=== PATIENT | female | born 1980 | race Caucasian/White ===

== ENCOUNTER → 2019-07-27 11:28 | Outpatient (CLI) | payer SELFPAY ==
--- NOTE | ~2019-07-27 | XR_ITS ---
EXAMINATION: XR lumbar spine 2-3V DATE: 07/27/2019 12:12 INDICATION: Low back pain TECHNIQUE: Anteroposterior and lateral views of the lumbar spine, and cone-down lateral view of the l umbosacral junction were obtained. COMPARISON: None. FINDINGS: There is no fracture, dislocation, or subluxation. The vertebral body heights are normal. T here is moderate loss of intervertebral disc space height at L5-S1. Small degenerative osteophytes pr oject from the anterior endplates of multiple vertebral bodies. IMPRESSION: 1. Moderate lumbar spondylosis at L5-S1 without acute osseous abnormality. Reviewed, dictated and finalized at location A.
== END ==
PROVIDERS: PCP Emergency Medicine; Visit Provider Emergency Medicine
DX: M47.897 Other spondylosis, lumbosacral region (principal)
CPT/HCPCS: 72100

== ENCOUNTER 2019-11-14 08:41 | Emergency (ER) | payer OTHER, SELFPAY ==
[2019-11-14] VITALS (14 sets, daily range): BP systolic 115–153; BP diastolic 83–121; PULSE 54–89; RESP 16–18; TEMP 36.9; O2SAT 77–100
--- NOTE | ~2019-11-14 | XR_ITS ---
EXAMINATION: XR chest 2V EXAM DATE: 11/14/2019 13:40 INDICATION: Cough and vomiting, symptoms 2 days. TECHNIQUE: Frontal and lateral projections of the chest obtained and reviewed. Comparison is made to prior examination from 07/31/2018. FINDINGS: The lungs are clear. There are no pleural effusions. The cardiomediastinal silhouette is within normal limits. There is no pneumothorax suspected. The bones and soft tissues are unremarkab le. There is no significant interval change. IMPRESSION: No acute cardiopulmonary findings. Reviewed, dictated and finalized at location B.
--- NOTE | 2019-11-14 08:47 | ED.NAVMDI ---
HPI - Nausea/Vomiting/Diarrhea General Chief complaint: Nausea/Vomiting/Diarrhea Stated complaint: vomiting Time Seen by Provider: 11/14/19 08:47 Source: patient Mode of arrival: ambulatory Limitations: no limitations History of Present Illness HPI Narrative: Patient is a 39-year-old female that presents for evaluation of intractable nausea and vomiting. Patient states symptoms started after having an episode of binge drinking on Thursday night which she and 2 other friends finished nearly a handle of hard alcohol. Patient states she has a history frequent alcohol use, but denies any dependency or history of alcohol withdrawal. She states in the past she has had pancreatitis, but is currently denying any abdominal pain. Pain is mild, aching throughout her abdomen. She states it is very mild in nature. She reports a burning irritation in her throat. She denies any chest pain or shortness of breath. She states that she has been unable to tolerate any oral intake over the past 48 hours. She denies fever, chills, hematuria or dysuria. No lower abdominal pain or vaginal discharge. No diarrhea. Related Data Allergies Allergy/AdvReac Type Severity Reaction Status Date / Time cefadroxil Allergy Severe Verified 12/15/12 13:39 morphine Allergy Intermediate Verified 12/15/12 13:38 Penicillins Allergy Intermediate Verified 10/14/13 14:57 Cephalosporins Allergy Mild NOT SURE Verified 04/09/15 14:36 acetaminophen Allergy Unknown Verified 07/19/16 13:25 propoxyphene Allergy Unknown Verified 07/19/16 13:25 Review of Systems Review of Systems: Narrative: CONSTITUTIONAL: Denies fever, chills, or sweats. ENT: Denies rhinorrhea, congestion CARDIOVASCULAR: Denies chest pain, palpitations RESPIRATORY: Denies cough or dyspnea. GASTROINTESTINAL: Reports mild abdominal pain, reports nausea and vomiting GENITOURINARY: Denies dysuria or hematuria. SKIN: Denies rash or itching. MUSCULOSKELETAL: Denies back pain, joint pain, or myalgia. NEUROLOGIC: Denies headache, numbness, or weakness. [facility] Past Medical History Medical History Pancreatitis Family History Family History (Updated 09/07/15 @ 23:19 by DOCTOR UNKNOWN) Father Family history of diabetes mellitus in first degree relative Other Diabetes mellitus Social History Social History (Updated 11/14/19 @ 08:56 by Kandi Van MD) Smoking status: Current every day smoker Smoking end date: 02/09/06 Alcohol intake: current Substance use: current Substance use type: marijuana Gender identity (if verbalized by the patient): Female Exam Narrative: Exam Narrative: GENERAL: Awake, alert, conversant, tearful HEAD: Normocephalic, atraumatic. EYES: PERRLA and EOMI. ENT: Nares clear, no rhinorrhea or epistaxis. Mucous membranes moist. NECK: Supple. CHEST: No respiratory distress, breathing even and non labored HEART: Regular rate, sinus rhythm ABDOMEN:Non distended, non tender, no focal tenderness on exam, non rigid, non distended EXTREMITIES: Normal range of motion. No edema. SKIN: Warm, dry, no rash. NEURO:No focal deficits. Alert and oriented x3 Course Vital Signs Vital signs: Vital Signs Temperature 36.9 C 11/14/19 08:46 Pulse Rate 54 L 11/14/19 08:46 Respiratory Rate 17 11/14/19 08:46 Blood Pressure 115/90 11/14/19 08:46 Pulse Oximetry 97 11/14/19 08:46 Temperature 36.9 C 11/14/19 08:46 Pulse Rate 74 11/14/19 15:01 Respiratory Rate 16 11/14/19 15:01 Blood Pressure 153/85 H 11/14/19 15:01 Pulse Oximetry 100 11/14/19 15:01 MDM - Nausea/Vomiting/Diarrhea MDM Narrative Medical decision making narrative: Patient presented for evaluation of recurrent nausea and vomiting after heavy alcohol use over 48 hours ago. Patient is denying any abdominal pain and in fact does not have any focal findings on abdominal exam. Vital signs are reassuring. Have access obtained and
[2019-11-14 08:59] LABS: Basophils Percent Auto 0.2 % (0.2-1.2); Eosinophils Percent Auto 0.2 % (0-4.4); Hemoglobin 16.7 g/dL (12.0-15.0); Immature Granulocyte Absolute 0.08 K/mm3 (0.00-0.031); Immature Granulocyte Percent A 0.6 % (0-0.5); Lymphocytes Percent Auto 8.8 % (18.3-44.2); Mean Corpuscular HGB Conc 35.5 g/dl (32-36); Mean Corpuscular Hemoglobin 31.7 pg (26-34); Mean Corpuscular Volume 89.4 fl (80-100); Mean Platelet Volume 9.3 fl (7.4-10.4); Monocytes Absolute Auto 0.9 K/mm3 (0.1-0.6); Monocytes Percent Auto 7.2 % (2.6-8.5); Neutrophils Absolute Auto 10.4 K/mm3 (1.3-6.7); Platelet Count Result 266 k/mm3 (150-375); Red Blood Count 5.26 M/mm3 (4.2-5.4); Red Cell Distribution Width 13.6 % (11.5-14.5); White Blood Count 12.5 K/mm3 (4.5-10.0)
[2019-11-14 09:17] LABS: Alanine Aminotransferase 32 U/L (4-35); Albumin Level 4.9 g/dL (3.5-5.1); Alkaline Phosphatase 93 U/L (38-126); Anion Gap 18 mmol/L (8-16); Aspartate Amino Transferase 34 U/L (14-36); Bilirubin,Total 1.1 mg/dL (0.2-1.3); Blood Urea Nitrogen 15 mg/dL (7-17); Calcium 9.9 mg/dL (8.4-10.2); Carbon Dioxide 27 mmol/L (22-30); Chloride 91 mmol/L (98-107); Estimated Glomerular Filt Rate > 60; Glucose 131 mg/dL (65-105); Lipase 53 U/L (23-300); Potassium 2.8 mmol/L (3.4-5.0); Sodium 136 mmol/L (137-145)
[2019-11-14] MEDS: SODIUM CHLORIDE 0.9% IV 1,000 ML 999 ML IV CONT (09:25)
[2019-11-14] MEDS: ONDANSETRON INJ 4 MG/2 ML VIAL IV PUSH ×2 (09:26→14:20)
[2019-11-14] MEDS: KCL 20 MEQ/SW 100 ML 100 ML 50 MEQ IVPB (09:43)
--- NOTE | 2019-11-14 09:45 | PC.NURSE ---
PER ERP KRUPA, THIAMINE BAG OF IV FLUIDS CAN BE HUNG AT A BOLUS RATE. BAG HUNG AT THAT RATE AT THIS TIME.
--- NOTE | 2019-11-14 09:46 | PC.NURSE ---
PER DONYA IN PHARMACY, K+ OKAY TO RUN WITH THIAMINE DRIP, BAGS INFUSING TOGETHER AT THIS TIME.
--- NOTE | 2019-11-14 09:48 | PC.NURSE ---
PT REPORTS THAT HER NAUSEA HAS RESOLVED AT THIS TIME.
[2019-11-14] MEDS: MAG HYDROX/AL HYDROX/SIMETH 30 ML UDC PO (10:20)
[2019-11-14] MEDS: POTASSIUM CHLORIDE 20 MEQ PACKET (FOR LIQUID) 40 MEQ PO (11:12)
--- NOTE | 2019-11-14 11:12 | PC.NURSE ---
PT COMPLAINING THAT THE IV POTASSIUM IS BURNING HER ARM. ERP BERTELS VERBAL ORDER FRO 500ML NS TO RUN WITH POTASSIUM AT THIS TIME
[2019-11-14] MEDS: SODIUM CHLORIDE 0.9% IV 500 ML (11:13)
--- NOTE | 2019-11-14 12:39 | PC.NURSE ---
UPON ROUNDING ON PT SHE IS C/O BURNING STILLL IN ESOPHAGUS. VERBAL ORDER FOR LIDOCAINE FROM [facility].
[2019-11-14] MEDS: LIDOCAINE HCL 2% VISC SOLN 15 ML UDC PO (12:46)
[2019-11-14 13:15] LABS: Anion Gap 7 mmol/L (8-16); Blood Urea Nitrogen 12 mg/dL (7-17); Calcium 8.4 mg/dL (8.4-10.2); Carbon Dioxide 31 mmol/L (22-30); Chloride 98 mmol/L (98-107); Estimated CRCL calculation 126 ml/min; Estimated Glomerular Filt Rate > 60; Glucose 100 mg/dL (65-105); Potassium 3.1 mmol/L (3.4-5.0); Sodium 136 mmol/L (137-145)
== END 2019-11-14 15:02 | disposition home or self-care (01) ==
PROVIDERS: Emergency Provider Emergency Medicine; PCP Emergency Medicine
DX: R11.2 Nausea with vomiting, unspecified (principal); E87.6 Hypokalemia; E86.0 Dehydration; Z87.891 Personal history of nicotine dependence
CPT/HCPCS: 36415; 71046; 80048; 80053; 81025; 83690; 85025; 96365; 96366; 96368; 96375; 96376; 99284; A9270; J2405; J3411; J3475; J3480; J7030; J7040; J7121

== ENCOUNTER 2019-12-27 13:50 | Outpatient (CLI) | payer OTHER, SELFPAY | END 2019-12-27 13:51 | disposition home or self-care (01) | LOC: ANHAUDIO 13:52 | PROVIDERS: PCP Emergency Medicine; Visit Provider Otolaryngology | DX: H93.13 Tinnitus, bilateral (principal) | CPT/HCPCS: 92557; 92567 ==

== ENCOUNTER 2020-01-16 15:08 | Outpatient (CLI) | payer OTHER, SELFPAY ==
--- NOTE | ~2020-01-16 | MM_ITS ---
EXAMINATION: MM screening eliu BI w david HISTORY: Screening TECHNIQUE: Craniocaudal and mediolateral oblique 3-D tomosynthesis images were obtained and synthetic 2-D images were generated. CAD analysis was submitted and interpreted. COMPARISON: No prior mammogram is available for comparison at this institution. BREAST PARENCHYMAL COMPOSITION: The breasts are heterogeneously dense, which may obscure small masses . FINDINGS: There is no evidence of suspicious mass, calcification, or architectural distortion to sugg est malignancy in either breast. There has been no suspicious interval change. IMPRESSION: 1. No mammographic evidence of malignancy. 2. Recommend routine screening mammography in one year. BI-RADS Category 1: Negative Reviewed, dictated and finalized at location A. CLEANER PRESSER
== END 2020-01-16 15:09 | disposition home or self-care (01) ==
LOC: ANHIMG 15:09
PROVIDERS: PCP Emergency Medicine; Visit Provider Emergency Medicine
DX: Z12.31 Encounter for screening mammogram for malignant neoplasm of breast (principal)
CPT/HCPCS: 77063; 77067

== ENCOUNTER → 2021-02-25 10:37 | Outpatient (CLI) | payer OTHER, SELFPAY ==
[2021-02-26 10:57] LABS: SARS-CoV-2 RNA PCR Positive
== END ==
PROVIDERS: PCP Emergency Medicine; Visit Provider Emergency Medicine
DX: U07.1 COVID-19 (principal)
CPT/HCPCS: C9803; U0003; U0005

== ENCOUNTER 2022-04-01 16:33 | Emergency (ER) | payer OTHER, SELFPAY ==
--- NOTE | ~2022-04-01 | XR_ITS ---
EXAMINATION: XR chest 2V DATE: 04/01/2022 17:01 INDICATION: Intermittent palpitations TECHNIQUE: PA and lateral views of the chest were obtained. COMPARISON: Chest radiograph dated 11/14/2019 FINDINGS: The lungs remain clear with no focal airspace opacities, pulmonary edema, pleural effusion or pneumot horax. The cardiomediastinal silhouette is normal. Mild to moderate thoracic spondylosis. IMPRESSION: 1. No acute cardiopulmonary disease. Reviewed, dictated and finalized at location A. BUILDER OPERATOR
--- NOTE | 2022-04-01 16:34 | ECG_ITS ---
Measurements Intervals [place] Rate: 95 P: 47 MT: 154 QRS: -43 QRSD: 99 T: 54 QT: 361 QTc: 454 Interpretive Statements SINUS RHYTHM WITH FREQUENT ECTOPIC PREMATURE COMPLEXES LEFT ANTERIOR FASCICULAR BLOCK MODERATE VOLTAGE CRITERIA FOR LVH, CONSIDER NORMAL VARIANT [MEETS CRITERIA IN ONE OF: R(aVL), S(V1), R(V5), R(V5/V6)+S(V1)] ABNORMAL ECG NO PREVIOUS ECG AVAILABLE FOR COMPARISON Electronically Signed On 04-02-2022 13:37:36 CYCLE COUNTER by Reynaldo Lara M.D.
[2022-04-01 16:40] VITALS: BP 154/103; PULSE 91; RESP 16; TEMP 36.8; O2SAT 100
[2022-04-01 16:53] LABS: Basophils Absolute Auto 0.1 K/mm3 (0.0-0.1); Eosinophils Absolute Auto 0.2 K/mm3 (0-0.3); Eosinophils Percent Auto 1.7 % (0-4.4); Hematocrit 37.5 % (37.0-47.0); Hemoglobin 11.9 g/dL (12.0-15.0); Immature Granulocyte Absolute 0.04 K/mm3 (0.00-0.031); Immature Granulocyte Percent A 0.4 % (0-0.5); Lymphocytes Percent Auto 20.1 % (18.3-44.2); Mean Corpuscular HGB Conc 31.7 g/dl (32-36); Mean Corpuscular Hemoglobin 25.8 pg (26-34); Mean Corpuscular Volume 81.2 fl (80-100); Mean Platelet Volume 9.2 fl (7.4-10.4); Monocytes Absolute Auto 0.6 K/mm3 (0.1-0.6); Monocytes Percent Auto 6.3 % (2.6-8.5); Neutrophils Absolute Auto 6.7 K/mm3 (1.3-6.7); Neutrophils Percent Auto 70.5 % (45.5-73.1); Platelet Count Result 231 k/mm3 (150-375); Red Blood Count 4.62 M/mm3 (4.2-5.4); Red Cell Distribution Width 17.8 % (11.5-14.5); White Blood Count 9.5 K/mm3 (4.5-10.0)
[2022-04-01 17:03] LABS: Alanine Aminotransferase 19 U/L (6-35); Albumin Level 4.4 g/dL (3.5-5.1); Alkaline Phosphatase 96 U/L (38-126); Anion Gap 7 mmol/L (8-16); Aspartate Amino Transferase 25 U/L (14-36); Bilirubin,Total 0.8 mg/dL (0.2-1.3); Blood Urea Nitrogen 12 mg/dL (7-17); Calcium 8.6 mg/dL (8.4-10.2); Carbon Dioxide 24 mmol/L (22-30); Chloride 103 mmol/L (98-107); Estimated CRCL calculation 107 ml/min; Estimated Glomerular Filt Rate > 60; Glucose 91 mg/dL (65-110); Lipase 92 U/L (23-300); Potassium 3.4 mmol/L (3.4-5.0); Sodium 134 mmol/L (137-145)
[2022-04-01 17:04] LABS: Prothrombin Time 12.8 Seconds (11.1-14.7)
[2022-04-01 17:05] LABS: Partial Thromboplastin Time 25.6 SECONDS (22.3-36.8)
[2022-04-01 17:14] LABS: Troponin I < 0.012 ng/mL (0.000-0.034)
[2022-04-01 19:21] VITALS: BP 160/120; PULSE 97; RESP 20; O2SAT 100
--- NOTE | 2022-04-01 19:44 | ED.ARRPALP ---
HPI - Arrhythmia/Palpitations General Chief Complaint: Arrhythmia/Palpitations Stated Complaint: PALPATATIONS Time Seen by Provider: 04/01/22 19:28 Source: patient Mode of arrival: ambulatory Limitations: no limitations History of Present Illness HPI narrative: Patient drove herself to the emergency room because of palpitation and elevated blood pressure. Patient is telling me that she been having palpitation for months, intermittent, no aggravating or relieving factors. 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 And was told to follow-up with her family physician. Patient visited her family physician today and was told to go to the emergency room. Patient reports the above symptoms get worse with the stress. Patient have a lot of stress lately. History of hyperlipidemia, depression, anxiety,. Patient smokes cigarettes, marijuana and drink alcohol almost daily. Related Data Allergies Allergy/AdvReac Type Severity Reaction Status Date / Time cefadroxil Allergy Severe Unknown Verified 12/14/19 11:07 morphine Allergy Intermediate hives Verified 12/14/19 11:07 Penicillins Allergy Intermediate hives Verified 12/14/19 11:07 Cephalosporins Allergy Mild pancreatiti Verified 12/14/19 11:07 s propoxyphene Allergy Mild unknown Verified 12/14/19 11:07 acetaminophen Allergy Unknown unknown Verified 12/14/19 11:07 Review of Systems Review of Systems: All systems reviewed & are unremarkable except as noted in HPI and below PMFSH Past Medical History Medical History (Updated 04/01/22 @ 20:23 by Volodymyr Aguilera MD) Pancreatitis Family History Family History Father Family history of diabetes mellitus in first degree relative Other Diabetes mellitus Social History Social History Smoking packs per day: 0.50 Smoking cigarettes per day: 10.0 Years smoked: 20 Smoking pack-years: 10.00 Smoking status: Current every day smoker Tobacco type: cigarettes Second hand tobacco smoke exposure: Yes Smoking end date: 02/09/06 Alcohol intake: former Substance use: current Substance use type: marijuana Gender identity (if verbalized by the patient): Female Exam Narrative: General appearance: Well-developed, well-nourished Skin: Normal color Head: Normocephalic, nontraumatic Eyes: Clear conjunctiva ENT: Oropharynx normal, ears normal, nose normal Neck: Supple, nontender Chest and respiratory: Airway patent, no respiratory distress, no accessory muscle use Heart: Regular rate/rhythm Abdomen: Soft, nontender, no organomegaly, quiet bowel sounds Vascular: Normal peripheral pulses, normal capillary refill. Musculoskeletal: Normal range of motion, nontender back Neurologic: Alert and oriented ?3, NOTCHER is normal as tested, no gross motor deficit Course Reevaluation(s) Reevaluation #1: Currently patient is asymptomatic. Patient declined Ativan. Because she is driving back home. Date: 04/01/22 Time: 20:14 Vital Signs Vital signs: Vital Signs Temperature 36.8 C 04/01/22 16:40 Pulse Rate 91 04/01/22 16:40 Respiratory Rate 16 04/01/22 16:40 Blood Pressure 154/103 H 04/01/22 16:40 Pulse Oximetry 100 04/01/22 16:40 Oxygen Delivery Room Air 04/01/22 16:40 Temperature 36.8 C 04/01/22 16:40 Pulse Rate 92 04/01/22 20:12 Respiratory Rate 20 04/01/22 20:12 Blood Pressure 154/100 H 04/01/22 20:12 Pulse Oximetry 99 04/01/22 20:12 Oxygen Delivery Room Air 04/01/22 16:40 MDM - Arrhythmia/Palpitations MDM Narrative Medical decision making narrat
[2022-04-01 20:02] LABS: Troponin I < 0.012 ng/mL (0.000-0.034)
--- NOTE | 2022-04-01 20:11 | PC.NURSE ---
Pt reports new onset high blood pressure. She has never been diagnosed with hypertension and is not prescribed any medications. Her only complaint is feeling short of breath with exertion. She denies chest pain, dizziness, headache, or vision changes.
[2022-04-01 20:12] VITALS: BP 154/100; PULSE 92; RESP 20; O2SAT 99
[2022-04-01 20:41] VITALS: BP 156/102; PULSE 90; RESP 18; O2SAT 100
== END 2022-04-01 20:47 | disposition home or self-care (01) ==
PROVIDERS: Emergency Medicine; Emergency Provider Emergency Medicine; PCP Emergency Medicine
DX: R00.2 Palpitations (principal); I10 Essential (primary) hypertension; E78.5 Hyperlipidemia, unspecified; F17.210 Nicotine dependence, cigarettes, uncomplicated; R94.31 Abnormal electrocardiogram [ECG] [EKG]; I44.4 Left anterior fascicular block
CPT/HCPCS: 36415; 71046; 80053; 83690; 84484; 85025; 85610; 85730; 93005; 99284

== ENCOUNTER 2024-11-29 15:09 | Outpatient (CLI) | payer OTHER, SELFPAY ==
--- OUTSIDE RECORDS SUMMARY | 2024-11-28 11:00 | XMS_ITS | Encounter Summary ---
Author Organization [facility] Address [address] [place] [address] Care Team Providers Care Mule Packer Name Role Phone Capri Olsen MD Primary Care Provider [phone] Reason for Visit * Reason Comments possible ear infection Patient states sh lesvia has having right ear pain for 3 days, and it feels a little clogged. And it itches deep inside. Encounter Details Date Type Department Care Team (Late st Contact Info) Description 11/28/2024 11:00 AM CDT Office Visit [facility] [employer] [place] [address] [place] [address] Stacia Kerns, ANP [id number] [facility] [facility] [address] [place] [address] Infective otitis externa of right ear (Primary Dx); Excessive sweating Social History Tobacco Use Types Packs/Day Years Used Date Smoking Tobacco: Every Day Cigarettes 0.5 25 Smokeless Tobacco: Never Alcohol Use Standard Drinks/Week Comments Yes 2 (1 standard drink = 0.6 oz pure alcohol) has cut back to 1-2 shots once monthly Comments No Sex and Gender Information Value Date Recorded Sex Assigned at Female 06/25/2023 5:35 AM CDT Legal Sex 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:37 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 Gender Identity Female 06/25/2023 5:35 AM CDT Sexual Orientation Bisexual 06/25/2023 5: 35 AM CDT documented as of this encounter Last Filed Vital Signs Vital Sign Reading Time Taken Comments Blood Pressure 122/74 11/28/2024 10:47 AM CDT Pulse 80 11/28/2024 10:47 AM CDT Temperature 36.6 C (97.9 F) 11/28/2024 10:47 AM CDT Respiratory Rate 16 11/28/2024 10:47 AM CDT Oxygen Saturation 97% 11/28/2024 10:47 AM CDT Inhaled Oxygen Concentration - - Weight 114.8 kg (253 lb) 11/28/2024 10:47 AM CDT Height 160 cm (5' 3) 11/28/2024 10:47 AM CDT Body Mass Index 44.82 11/28/2024 10:47 AM CDT documented in this encounter Progress Notes * Stacia Kerns, ANP - 11/28/2024 11:05 AM CDT HISTORY OF PRESENT ILLNESS Awa Yan, a 44 y.o. female presents with a Chief Complaint of possible ear infection (Patientstates she has having right ear pain for 3 days, and it feels a little clogged. And it itches deep inside.) 3 days of R ear pain with waxy drainage. No purulent drainage. Denies water exposure or ill contacts. Also notes gland tenderness under R chin area. Mild occipital headache with vision changes of neck pain. No cough. Sweating today like she had a fever. No treatment tried Also notes excessive body sweating for last few months. Terrible in summer to point she would need to remove glasses often in the heat. Ongoing for a few years but worse lately. Denies change in meds but chart does reflect stoppage of her B arline and statin medication prescription from cardiology. REVIEW OF SYSTEMS Review of Systems Constitutional: Positive for fatigue. Negative for chills and fever. HENT: Positive for ear discharge, ear pain and sore throat (slight R side only.). Negative for congestion, dental problem, facial swelling, mouth sores, postnasal drip, sinus pressure and sinus pain. Eyes: Negative. Respiratory: Negative. Cardiovascular: Negative. Gastrointestinal: Negative for nausea. Endocrine: Negative. Musculoskeletal: Negative for neck pain and neck stiffness. Allergic/Immunologic: Negative for immunocompromised state. Neurological: Positive for headaches (mild). Negative for dizziness and weakness. Objective PHYSICAL EXAM BP 122/74 (BP Location: Right arm, Patient Position (BP): Sitting, BP Cuff Size: Large Adult) Pulse 80 Temp 97.9 ??F (36.6 ??C) (Tympanic) Resp 16 Ht 5' 3 (1.6 m) Wt 114.8 kg (253 lb) SpO2 97% BMI 44.82 kg/m?? Physical Exam Vitals reviewed. Constitutional: General: She is not in acute distress. HENT: Head: Normocephalic. Right Ear: Tympanic membrane normal. Swelling (canal with redness.) and tenderness (R ear to movement externally) present. No drainage. There is no impacted cerumen. No foreign body. Left Ear: Tympanic membrane, ear canal and external ear normal. Nose: No mucosal edema or rhinorrhea. Right Turbinates: Swollen (mild R side only). Left Turbinates: Not swollen. Right Sinus: No maxillary sinus tenderness or frontal sinus tenderness. Left Sinus: No maxillary sinus tenderness or frontal sinus tenderness. Mouth/Throat: Mouth: Mucous membranes are moist. Pharynx: Posterior oropharyngeal erythema (slight R side) present. Eyes: Extraocular Movements: Extraocular movements intact. Conjunctiva/sclera: Conjunctivae normal. Pupils: Pupils are equal, round, and reactive to light. Cardiovascular: Rate and Rhythm: Normal rate and regular rhythm. Heart sounds: Normal heart sounds. No murmur heard. Pulmonary: Breath sounds: Normal breath sounds. Musculoskeletal: Cervical back: Neck supple. Lymphadenopathy: Cervical: Cervical adenopathy (mild submandibular R) present. Skin: General: Skin is warm and dry. Findings: No rash. Neurological: General: No focal deficit present. Mental Status: She is alert. Psychiatric: Mood and Affect: Mood normal. Procedures Assessment ASSESSMENT and PLAN: 1. Infective otitis externa of right ear (Primary) Treat with drops x 7 days. Heat and ibuprofen as needed. - unhjhawd-ruapuokln-asodqmdnbupajb (CORTISPORIN) 3.5-10,000-1 mg/mL-unit/mL-% otic solution; Administer 3 Drops in right ear 4 times daily for 7 days. Dispense: 10 mL; Refill: 0 - fluticasone propionate (FLONASE) 50 mcg/spray [place], Suspension nasal inhaler; Administer 2 Sprays in each nostril daily. Dispense: 32 Gram; Refill: 0 2. Excessive sweating Consider menopausal, medication causes, hyperhidrosis. Monitor closely with recent stop of cardiac medications. - COMPREHENSIVE METABOLIC PANEL; Future - CBC WITH DIFFERENTIAL; Future - TSH REFLEXIVE; Future FOLLOW UP Return in about 3 months (around 02/28/2025) for physical, FU sweating, fasting labs. Appropriate medications prescribed and pt instructed in risks , benefits and side effects. Appropriate patient instructions provided . See details in AVS Medications and options explained to include common side effects. Understanding of medications, course, diagnosis, and expectations were expressed by patient/guardian. Pt advised to call my office in one week if not contacted with any ordered test results. LASHELL Saez 11/28/2024 [facility] AT [address] [address] Some of this encounter may have been transcribed using [employer] voicerecognition without a human arts administrator. This report may or may not have been adjusted for typographical or medical and syntax errors. Answers submitted by the patient for this visit: Headache questionnaire (Submitted on 11/28/2024) Chief Complaint: Headaches Onset: in the past 7 days How often do your symptoms occur?: constantly Where is your pain located?: bilateral Is your headache similar to previous headaches?: Yes Describe your pain.: dull, sharp Pain - numeric: 6/10 behavior change: No anorexia: No blurred vision: No drainage: Yes Eye watering: Yes Facial sweating: Yes Insomnia: No loss of balance: No muscle aches: No Sensitivity to sound: No Scalp tenderness: No swollen glands: Yes tingling: No visual change: No weight loss: No documented in this encounter Miscellaneous Notes * Patient Instructions - Stacia Kerns ANP - 11/28/2024 11:18 AM CDT Images from the original note were not included. For the sweating , check with specialist on medication contributions. DRYSOL over the counter antiperspirant. Use underarms, breasts, hands and feet. Swimmer's Ear: Care Instructions Overview Swimmer's ear (otitis externa) is inflammation or infection of the ear canal. This is the passage that leads from the outer ear to the eardrum. Any water, sand, or other debris that gets into the earcanal and stays there can cause swimmer's ear. Putting cotton swabs or other items in the ear to clean it can also cause this problem. Swimmer's ear can be very painful. But you can treat the pain and infection with medicines. You should feel better in a few days. Follow-up care is a vera part of your treatment and safety. Be sure to make and go to all appointments, and call your doctor if you are having problems. It's also a good idea to know your test resultsand keep a list of the medicines you take. How can you care for yourself at home? Cleaning and care Use antibiotic drops as your doctor directs. Do not insert eardrops (other than the antibiotic eardrops) or anything else into the ear unless your doctor has told you to. Avoid getting water in the ear until the problem clears up. Use cotton lightly coated with petroleum jelly as an earplug. Do not use plastic earplugs. Use a dehairer set on low to carefully dry the ear after you shower. To ease ear pain, hold a warm washcloth against your ear. Take pain medicines exactly as directed. If the doctor gave you a prescription medicine for pain, take it as prescribed. If you are not taking a prescription pain medicine, ask your doctor if you can take an cpwf-ffb-tpubrwx medicine. Inserting eardrops Warm the drops to body temperature by rolling the container in your hands. Or you can place it in acup of warm water for a few minutes. Lie down, with your ear facing up. Place drops inside the ear. Follow your doctor's instructions (or the directions on the label) for how many drops to use. Gently wiggle the outer ear or pull the ear up and back to help the drops getinto the ear. It's important to keep the liquid in the ear canal for 3 to 5 minutes. When should you call for help? Call your doctor now or seek immediate medical care if: You have a new or higher fever. You have new or worse pain, swelling, warmth, or redness around or behind your ear. You have new or increasing pus or blood draining from your ear. Watch closely for changes in your health, and be sure to contact your doctor if: You are not getting better after 2 days (48 hours). Where can you learn more? Go to https://www.[employer].net/patiented Enter C706 in the search box to learn more about Swimmer's Ear: Care Instructions. Current as of: December 06, 2023 Content Version: 14.5 ?? [id number] [employer]. Care instructions adapted under license by your healthcare professional. If you have questions about a medical condition or this instruction, always ask your healthcare professional. These instructions may not represent the values of this healthcare organization. [employer] disclaims any warranty or liability for your use of this information. documented in this encounter Plan of Treatment Upcoming Encounters Date Type Department Care Team (Late st Contact Info) Description 12/08/2024 8:20 AM CDT Procedure visit [facility] [address] [place] [address] 03/02/2025 8:00 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 Office Visit [facility] [address] [place] [address] Stacia Kerns ANP [address] [address] [address] Scheduled Orders Name Type Priority Associated Diagnoses Orde r Schedule COMPREHENSIVE METABOLIC PANEL Lab Routine Excessive sweating Expected: 11/28/2024, Expires: 11/28/2025 CBC WITH DIFFERENTIAL Lab Routine Excessive sweating Expected: 11/28/2024, Expires: 11/28/2025 TSH REFLEXIVE Lab Routine Excessive sweating Expected: 11/28/2024, Expires: 11/28/2025 documented as of this encounter Visit Diagnoses Diagnosis Infective otitis externa of right ear- Primary Excessive sweating Generalized hyperhidrosis documented in this encounter Care Teams Mule Packer Relationship Specialty Start Date End Date Capri Olsen MD [address] [place] [address] [facility] [place] [address] PCP - General Internal Medicine 06/24/23 documented as of this encounter
--- NOTE | ~2024-11-29 | MM_ITS ---
EXAMINATION: MM screening eliu BI w david HISTORY: Screening TECHNIQUE: Craniocaudal and mediolateral oblique 3-D tomosynthesis images were obtained and synthetic 2-D images were generated. CAD analysis was submitted and interpreted. COMPARISON: 01/16/2020 BREAST PARENCHYMAL COMPOSITION: There are scattered areas of fibroglandular density. FINDINGS: There is no evidence of suspicious mass, calcification, or architectural distortion to suggest malignancy in either breast. IMPRESSION: 1. No mammographic evidence of malignancy. 2. Recommend routine screening mammography in one year. BI-RADS Category 1: Negative Reviewed, dictated and finalized at location B.
--- OUTSIDE RECORDS SUMMARY | 2024-11-29 19:01 | XMS_ITS | Data Portability ---
Author Organization [facility] [place] Address [address] [place] [address] [place] [address] Care Team Providers Care Substance Abuse Technician Name Role Phone SEBASTIAN ESTEVEZ Primary Care Provider Assessment No assessment recorded. Plan of Treatment Reminders Order Date Submit Date Provider Last Modified By Organization Details Last Modified Time Details Appointments None recorded. Lab pap, IG + HR HPV - HPV regardless but if HPV is positive need subtyping 16,18/45 2024 025 [facility] (Lab), [address], [place], [address], 16:58:22 Referral None recorded. Procedures None recorded. Surgeries None recorded. Imaging MAMMO, screening, digital, bilateral [email or web address] [place] [address] Imaging, [address], [address] [address], [place], [address], 18:57:40 US, pelvis 2021 [address]22 [address], [address], [place], [address], 10:20:23 US, transvagina l 2021 [id number], [address], [place], [address], 10:20:23 Medication Orders norethindro ne (contracept eric) 0.35 mg tablet 2024 025 [facility][id number], [address], [place], [id number], 5 17:21:59 norethindro ne (contracept eric) 0.35 mg tablet 2022 023 [facility] #[id number], [address], [place], [id number], 3 14:22:01 Patient TargetsNo targets recorded. Patient InstructionsNo instructions recorded. Reason for Referral None Reported. Results Created Date Observation Date Name Description Value Unit Range Abnormal Flag Note LastModifiedBy Organization Detail LastModifiedTime 01/30/20 22 01/29/2022 IMAGE GUIDE D PAP AND HPV REGAR DLESS image guided Pap, HPV regardless of Pap result SEE RESULT S BELOW CASE REPOR T: Cytol ogy Gynec ologi jassi Repor t Case: [id number] Autho shirley todd Provi melissa: Beba Garnett, JOSELITO Aranda cted: 01/29 1824 Order ing Locat ion: [place] Patho logy Recei thaddeus: 01/30 0231 First Scree n: Ana Matamoros Speci men: Scree connie Pap - Image d, Cervi x STATE MENT OF ADEQU ACY: Satis facto ry for evalu ation Trans forma tion zone compo nent prese nt FINAL DIAGN OSIS: Negat eric for Intra epith elial Luis Enrique bennett or Roberto robles (NIL) . Elect zarina win nirmal d by Ana Matamoros on 01/31 at 5:45 PM ----- ----- ----- ----- ----- ----- ----- ----- ----- ----- ----- ----- ----- ----- ----- ----- ----- ---- HPV RESUL TS: HPV mRNA E6/E7 : No HPV mRNA Detec kilo NOTE: This high risk HPV mRNA assay detec ts fourt een high- risk HPV types (16, 18, 31, 33, 35, 39, 45, 51, 52, 56, 58, 59, 66, 68) witho ut diffe renti ation . COMME NT: Note: This speci men was revie wed by a Cytot echno logis t and/o r Patho logis t (as indic ated in this repor t) after evalu ation using the Thinp rep Imagi ng Syste m. CLINI JASSI INFOR MATIO N: Menst rual Statu s: LMP (if appli cable ): Clini jassi Histo ry/Pr eviou s Pap: Type of Neopl kortney (if appli cable ): Signi fican t Clini jassi Findi ngs: Other Histo ry: Hormo fortunato (if appli cable ): PAP EDUCA GORDY L NOTE: The Pap Test is a scree connie test with an inher ent false negat eric rate. Liqui d-bas ed sampl ing may decre ase, but will not elimi linwood, false negat eric resul ts. A negat eric resul t does not precl ude the prese nce and/o r devel opmen t of disea se, since the prese nce of abnor mal cells in the sampl e depen ds on the locat ion of the lesio n and sampl ing techn ique. Selam nued regul ar scree connie is the best metho d of cance r preve ntion . If repor kilo cytol ogic findi ng do not corre late with physi jassi and/o r histo rical findi ngs, furth er inves tigat ion is recom scarlett d, as clini fifi loco nted. Not Available [facility] (Lab) [address], [place], [address], 01/31/2022 18:47:16 01/30/20 22 01/29/2022 CBC W/DIF F WBC 6.4 10'3/ uL 3.6-10 .2 Not Available [facility] (Lab) [address], [place], [address], 02/01/2022 17:37:13 01/30/20 22 01/29/2022 CBC W/DIF F RBC 4.35 10'6/ uL (based on docume nted legal sex) 4.10-5 .30 Not Available [facility] (Lab) [address], [place], [address], 02/01/2022 17:37:13 01/30/20 22 01/29/2022 CBC W/DIF F HGB 11.4 g/dL (based on docume nted legal sex) 11.9-1 5.8 low Not Available [facility] (Lab) [address], [place], [address], 02/01/2022 17:37:13 01/30/20 22 01/29/2022 CBC W/DIF F HCT 36.2 % (based on docume nted legal sex) 37.4-4 8.3 low Not Available [facility] (Lab) [address], [place], [address], 02/01/2022 17:37:13 01/30/20 22 01/29/2022 CBC W/DIF F MCV 83.2 fL 82.0-9 9.0 Not Available [facility] (Lab) [address], [place], [address], 02/01/2022 17:37:13 01/30/20 22 01/29/2022 CBC W/DIF F MCH 26.2 pg 27.0-3 3.0 low Not Available [facility] (Lab) [address], [place], [address], 02/01/2022 17:37:13 01/30/20 22 01/29/2022 CBC W/DIF F MCHC 31.5 g/dL 32.0-3 6.0 low Not Available [facility] (Lab) [address] [place], [address], 02/01/2022 17:37:13 01/30/20 22 01/29/2022 CBC W/DIF F RDW 16.6 % 11.0-1 5.0 high Not Available [facility] (Lab) [address], [place], [address], 02/01/2022 17:37:13 01/30/20 22 01/29/2022 CBC W/DIF F plt 248 10'3/ uL 150-45 0 Not Available [facility] (Lab) [address], [place], [address], 02/01/2022 17:37:13 01/30/20 22 01/29/2022 CBC W/DIF F MPV 10.3 fL 9.8-12 .7 Not Available [facility] (Lab) [address], [place], [address], 02/01/2022 17:37:13 01/30/20 22 01/29/2022 CBC W/DIF F NRBC's 0.0 % 0 Not Available [facility] (Lab) [address], [place], [address], 02/01/2022 17:37:13 01/30/20 22 01/29/2022 CBC W/DIF F absolute NRBCs 0.0 10'3/ uL 0 Not Available [facility] (Lab) [address], [place], [address], 02/01/2022 17:37:13 01/30/20 22 01/29/2022 CBC W/DIF F neutrophils 73.1 % 37.0-7 2.0 high Not Available [facility] (Lab) [address], [place], [address], 02/01/2022 17:37:13 01/30/20 22 01/29/2022 CBC W/DIF F lymphocytes 17.0 % 16.0-4 8.0 Not Available [facility] (Lab) [address], [place], [address], 02/01/2022 17:37:13 01/30/20 22 01/29/2022 CBC W/DIF F monocytes 6.8 % 4.0-14 .0 Not Available [facility] (Lab) [address], [place], [address], 02/01/2022 17:37:13 01/30/20 22 01/29/2022 CBC W/DIF F eosinophils 1.7 % 0.0-9. 0 Not Available [facility] (Lab) [address], [place], [address], 02/01/2022 17:37:13 01/30/20 22 01/29/2022 CBC W/DIF F basophils 1.1 % 0.0-2. 0 Not Available [facility] (Lab) [address], [place], [address], 02/01/2022 17:37:13 01/30/20 22 01/29/2022 CBC W/DIF F immature granulocytes 0.3 % no define d refere nce range Not Available [facility] (Lab) [address], [place], [address], 02/01/2022 17:37:13 01/30/20 22 01/29/2022 CBC W/DIF F absolute neutrophils 4.7 10'3/ uL 1.1-6. 0 Not Available [facility] (Lab) [address], [place], [address], 02/01/2022 17:37:13 01/30/20 22 01/29/2022 CBC W/DIF F absolute lymphocytes 1.1 10'3/ uL 0.7-3. 4 Not Available [facility] (Lab) [address] [place], [address], 02/01/2022 17:37:13 01/30/20 22 01/29/2022 CBC W/DIF F absolute monocytes 0.4 10'3/ uL 0.3-1. 0 Not Available [facility] (Lab) [address], [place], [address], 02/01/2022 17:37:13 01/30/20 22 01/29/2022 CBC W/DIF F absolute eosinophils 0.1 10'3/ uL 0.0-0. 6 Not Available [facility] (Lab) [address], [place], [address], 02/01/2022 17:37:13 01/30/20 22 01/29/2022 CBC W/DIF F absolute basophils 0.1 10'3/ uL 0.0-0. 1 Not Available [facility] (Lab) [address], [place], [address], 02/01/2022 17:37:13 01/30/20 22 01/29/2022 CBC W/DIF F absolute immature granulocytes 0.0 10'3/ uL 0.00-0 .10 01/30 2:37 AM: P indic ates parti al resul ts on a panel have been relea sed. Addit ional resul ts will follo w. 01/30 2:37 AM: This resul t has been final verif ied. No addit ional or patton ed resul ts are expec kilo. Not Available [facility] (Lab) [address], [place], [address], 02/01/2022 17:37:13 01/30/20 22 01/29/2022 DHEA SULFA TE DHEA-sulfate 112 ug/dL Femal e Range s Age(y ) Range (ug/d L) 10-15 34-28 0 15-20 65-36 8 20-25 148-4 07 25-35 99-34 0 35-45 61-33 7 45-55 35-25 6 55-65 19-20 5 65-75 9-246 > 75 12-15 4 Not Available [facility] (Lab) [address], [place], [address], 02/01/2022 17:37:13 01/30/20 22 01/29/2022 TSH, REFLE X FREE T4 TSH 2.91 uIU/m L 0.30-5 .33 Not Available [facility] (Lab) [address], [place], [address], 02/01/2022 17:37:13 01/30/20 22 01/29/2022 HUMAN SEX HORMO NE SRINIVAS NG GLOBU VIRIDIANA sex hormone binding globulin 56.6 nmole s/L 18.2-1 35.5 Not Available [facility] (Lab) [address], [place], [address], 02/01/2022 17:37:14 01/30/20 22 01/29/2022 PROGE STERO NE progesterone 9.83 NG/mL This assay was perfo rmed using [employer] ratio n reage nts and test kits. Value s obtai jayda with other assay metho ds or kits canno t be used inter patton eably . Femal e Proge stero ne Range s: Folli cular phase 0.06- 0.89 ng/mL Ovula tion phase 0.12- 12.00 ng/mL Lutea l phase 1.83- 23.90 ng/mL Postm enopa usal< 0.05- 0.13 ng/mL Healt hy Pregn ant Women 1st Trime ster1 1.0-4 4.30 2nd Trime ster2 5.40- 83.30 3rd Trime ster5 8.70- 214.0 0 Not Available [facility] (Lab) [address], [place], [address], 02/01/2022 17:37:14 01/30/20 22 01/29/2022 PROLA CTIN prolactin, total 24.90 NG/mL 4.79-2 3.30 high This assay was perfo rmed using [employer] reage nts and test kits. Value s obtai jayda with other assay metho ds or kits canno t be used inter patton eably . Not Available [facility] (Lab) [address], [place], [address], 02/01/2022 17:37:14 01/30/20 22 01/29/2022 FSH, LH, ESTRA DIOL estradiol 143.0 pg/mL This assay was perfo rmed using [employer] reage nts and test kits. Value s obtai jayda with other assay metho ds or kits canno t be used inter [facility] . Femal e Estra diol Range s: Folli cular phase 12.4- 233 pg/mL Ovula tion phase 41.0- 398 pg/mL Lutea l phase 22.3- 341 pg/mL Postm enopa usal< 5-138 pg/mL Healt hy Pregn ant Women 1st Trime ster1 54-32 43 pg/mL 2nd Trime ster1 561-2 1280 pg/mL 3rd Trime ster8 525-> 45391 pg/mL Not Available [facility] (Lab) [address] [place], [address], 02/01/2022 17:37:15 01/30/20 22 01/29/2022 FSH, LH, ESTRA DIOL FSH 1.9 mIU/m L This assay was perfo rmed using [employer] reage nts and test kits. Value s obtai jayda with other assay metho ds or kits canno t be used inter [facility] . Femal es Folli cular : 3.5-1 2.5 mIU/m L Ovula tion: 4.7-2 1.5 mIU/m L Lutea l: 1.7-7 .7 mIU/m L Postm enopa use: 25.8- 134.8 mIU/m L Not Available [facility] (Lab) [address], [place], [address], 02/01/2022 17:37:15 01/30/20 22 01/29/2022 FSH, LH, ESTRA DIOL LH 6.9 mIU/m L This assay was perfo rmed using [employer] reage nts and test kits. Value s obtai jayda with other assay metho ds or kits canno t be used inter [facility] . Femal es Mid-F ollic ular: 2.4-1 2.6 mIU/m L Mid-C ycle: 14.0- 95.6 mIU/m L Mid-L uteal : 1.0-1 1.4 mIU/m L Postm enopa use: 7.7-5 8.5 mIU/m L Not Available [facility] (Lab) [address], [place], [address], 02/01/2022 17:37:15 01/30/20 22 01/29/2022 TESTO STERO NE, FREE( DIALY SIS) AND TOTAL (LC/M S/MS) testosterone , total 40 NG/dL 2-45 For addit ional octavio stephenson e refer to http: //camille bennett.que stdia gnost ics.c om/fa q/Tot alTes robbie Escobedo CMSMS (This link is being provi ded for benny romero/ educa gordy l purpo ses only. ) This test was devel oped and its melina tical perfo rmanc e yamilex cteri stics have been deter mined by [employer]. It has not been clear ed or appro thaddeus by the FDA. This assay has been valid ated pursu ant to the CLIA regul ation s and is used for clini jassi purpo ses. Not Available [facility] (Lab) [address], [place], [address], 02/01/2022 17:37:15 01/30/20 22 01/29/2022 TESTO STERO NE, FREE( DIALY SIS) AND TOTAL (LC/M S/MS) testosterone , free 4.4 pg/mL 0.1-6. 4 This test was devel oped and its melina tical perfo rmanc e yamilex cteri stics have been deter mined by [employer]. It has not been clear ed or appro thaddeus by the FDA. This assay has been valid ated pursu ant to the CLIA regul ation s and is used for clini jassi purpo ses. Perfo rming Organ izati on Infor matio n: Site ID: [id number] Name: [facility]Mon[facility] yadi [place] jovanny Addre ss: [id number] [place] [address] Direc tor: Mango calzada M.D. Not Available [facility] (Lab) [address], [place], [address], 02/01/2022 17:37:15 02/19/19 23 02/19/2022 CT/GC AND TRICH OMONA S VAGIN JAMES (RRNA ), URINE chlamydia trachomatis, PCR Negati ve negati ve Not Available [facility] (Lab) [address], [place], [address], 02/20/2022 14:32:20 02/19/19 23 02/19/2022 CT/GC AND TRICH OMONA S VAGIN JAMES (RRNA ), URINE neisseria gonorrhoeae, PCR Negati ve negati ve Not Available [facility] (Lab) [address], [place], [address], 02/20/2022 14:32:20 02/19/19 23 02/19/2022 CT/GC AND TRICH OMONA S VAGIN JAMES (RRNA ), URINE trichomonas vaginalis ribosomal RNA (rrna) Negati ve negati ve Not Available [facility] (Lab) [address], [place], [address], 02/20/2022 14:32:20 02/24/19 23 02/24/2022 SURGI JASSI PATHO LOGY surgical pathology SEE RESULT S BELOW CASE REPOR T: Surgi jassi Patho logy Repor t Case: [id number] Autho shirley g Provi melissa: Beba Garnett NP Colle cted: 02/24 1604 Order ing Locat ion: [place] Patho logy Recei thaddeus: 02/25 0437 Patho logis t: Violet Basurto MD Speci men: Endom etriu m, EMB FINAL DIAGN OSIS: Endom etria l biops y: -Prol ifera tive endom etriu m. -No hyper plasi a or evide nce of roberto robles ident ified . -Elmer gn endoc ervic al gland ular epith elium . Elect zarina warren by Violet Basurto MD on 2022 at 1:29 PM ----- ----- ----- ----- ----- ----- ----- ----- ----- ----- ----- ----- ----- ----- ----- ----- ----- ---- CLINI JASSI INFOR MATIO N: r93.8 9 MICRO SCOPI C DESCR IPTIO N: A micro scopi c exami natio n was perfo rmed. GROSS DESCR IPTIO N: A. Endom etriu m. The speci men is label ed with the patie nt's name, russ olmedo cs and EMB . Recei thaddeus in forma viridiana is a 3.0 x 3.0 x 0.5 [address] of mucus and dark red tissu e. The entir e speci men is submi tted in 2 casse ttes. Gross ed by Lacey henry Not Available [facility] (Lab) [address], [place], [address], 02/27/2022 14:31:34 05/18/19 25 05/17/2024 IMAGE GUIDE D PAP AND HPV REGAR DLESS image guided Pap, HPV regardless of Pap result SEE RESULT S BELOW CASE REPOR T: Cytol ogy Gynec ologi jassi Repor t Case: [id number] Autho shirley g Provi melissa: Beba Garnett, JOSELITO Colle cted: 05/17 1643 Order ing Locat ion: [place] Patho logy Recei thaddeus: 05/18 0202 First Scree n: Ana Matamoros Rescr een: Abel Cabrera, CT Speci men: Scree connie Pap - Image d, Cervi x STATE MENT OF ADEQU ACY: Satis facto ry for evalu ation Trans forma tion zone compo nent prese nt ----- ----- ----- ----- ----- ----- ----- ----- ----- ----- ----- ----- ----- ----- ----- ----- ----- ---- FINAL DIAGN OSIS: Negat eric for Intra epith elial Lesjazz bennett or Roberto robles (NIL) . Elect zarina kinney d by Abel Cabrera, CT on 2024 at 1554 CDT ----- ----- ----- ----- ----- ----- ----- ----- ----- ----- ----- ----- ----- ----- ----- ----- ----- ---- HPV RESUL TS: HPV mRNA E6/E7 : No HPV mRNA Detec kilo NOTE: This high risk HPV mRNA assay detec ts fourt een high- risk HPV types (16, 18, 31, 33, 35, 39, 45, 51, 52, 56, 58, 59, 66, 68) witho ut diffe renti ation . COMME NT: This speci men was revie wed by a Cytot echno logis t and/o r Patho logis t (as indic ated in this repor t) after evalu ation using the Thinp rep Imagi ng Syste m. CLINI JASSI INFOR MATIO N: Menst rual Statu s: LMP (if appli cable ): Clini jassi Histo ry/Pr eviou s Pap: Type of Neopl kortney (if appli cable ): Signi tony t Clini jassi Findi ngs: Other Histo ry: Hormo fortunato (if appli cable ): PAP EDUCA GORDY L NOTE: The Pap Test is a scree conine test with an inher ent false negat eric rate. Liqui d-bas ed sampl ing may decre ase, but will not elimi linwood, false negat eric resul ts. A negat eric resul t does not precl ude the prese nce and/o r devel opmen t of disea se, since the prese nce of abnor mal cells in the sampl e depen ds on the locat ion of the lesio n and sampl ing techn ique. Selam nued regul ar scree connie is the best metho d of cance r preve ntion . If repor kilo cytol ogic findi ng do not corre late with physi jassi and/o r histo rical findi ngs, furth er inves tigat ion is recom scarlett d, as clini fifi loco nted. Not Available [facility] (Lab) [address], [place], [address], 05/19/2024 16:58:22 02/05/20 22 02/04/2022 imagi ng/di agnos tic resul t No observ ation record ed. MAIA Turner [address], [place], [address], 02/05/2022 20:11:17 02/05/20 22 02/05/2022 US, pelvi s No observ ation record ed. [address], [place], [address], 02/05/2022 09:15:34 02/05/20 22 02/05/2022 US, trans vagin al No observ ation record ed. [place] [address], [place], [address], 02/05/2022 09:15:23 Result Notes None recorded. Procedures Surgical History Date Name Laterality Status Provider Name and Address Organization Details Recorded Time 02/24/19 23 Endometrial Biopsy completed RONIT Kellogg [address], [place], [address], [place] [facility] 02/24/2022 16:20:29 09/01/20 20 Date of Last Pap Smear completed [facility] 01/29/2022 16:26:36 02/09/19 20 Date of Last Mammogram completed [facility] 01/29/2022 16:26:14 Tonsillectomy completed [facility] 10/11/2019 13:49:47 Tubal Ligation completed [facility] 10/11/2019 13:49:53 Imaging Results None recorded. Procedure Notes None recorded. Medical Equipment None Reported. Allergies Allergen ID Allergen Name Allergen Category Reaction Reaction Severity Criticality Documentation Date Start Date Code Code System Note Provider Name and Address Organization Details Recorded Time 1900 morphine medicatio n Not available Not available Not available 10/11/2019 7052 [facility] 13:47:06 1901 Product containin g penicilli n (product) medicatio n Not available Not available Not available 10/11/2019 55538 8001 SN[facility]ED [facility] 13:47:11 1902 Duricef medicatio n Not available Not available Not available 10/11/2019 52151 6 [facility]Norm [facility] 13:47:21 Medications Name Sig Start Date Stop Date Status Note LastModified by Organization Details LastModified Time quetiapine 25 mg tablet TAKE 1 TABLET BY MOUTH EVERY DAY AT BEDTIME 01/29 completed Not Available Not Available Not Available carvedilol 6.25 mg tablet TAKE 2 TABLETS BY MOUTH EVERY MORNING AND 1 TABLET EVERY EVENING active Not Available Not Available No t Available azithromyci n 250 mg tablet 09/29 completed Not Available Not Available Not Available omeprazole 40 mg capsule,del ayed release TAKE 1 CAPSULE BY MOUTH ONCE DAILY BEFORE A MEAL active Not Available Not Available No t Available simvastatin 20 mg tablet 05/16 completed Not Available Not Available Not Available gabapentin 300 mg capsule TAKE 1 CAPSULE BY MOUTH EVERY NIGHT AT BEDTIME 05/16 completed Not Available Not Available Not Available montelukast 10 mg tablet TAKE 1 TABLET BY MOUTH EVERY DAY active Not Available Not Available No t Available lisinopril 10 mg-hydrochl orothiazide 12.5 mg tablet TAKE 1 TABLET BY MOUTH DAILY 09/29 completed Not Available Not Available Not Available methylpredn isolone 4 mg tablets in a dose pack FOLLOW PACKAGE DIRECTION S 01/29 completed Not Available Not Available Not Available albuterol sulfate HFA 90 mcg/actuati on aerosol inhaler INHALE 2 PUFFS BY MOUTH EVERY 6 HOURS NEEDED active Not Available Not Available No t Available fluticasone propionate 50 mcg/actuati on nasal spray,suspe nsion SHAKE LIQUID AND USE 1 SPRAY IN EACH NOSTRIL TWICE DAILY active Not Available Not Available No t Available hydroxyzine pamoate 25 mg capsule TAKE 1 CAPSULE BY MOUTH THREE TIMES DAILY NEEDED 01/29 completed Not Available Not Available Not Available escitalopra m 10 mg tablet TAKE 1 TABLET BY MOUTH EVERY DAY AT BEDTIME 09/29 completed Not Available Not Available Not Available escitalopra m 20 mg tablet TAKE 1 TABLET BY MOUTH EVERY DAY AT BEDTIME active Not Available Not Available No t Available Strattera 40 mg capsule 1 capsule every day by oral route. active Not Available Not Available No t Available bupropion HCl XL 300 mg 24 hr tablet, extended release TAKE 1 TABLET BY MOUTH EVERY DAY IN THE MORNING 09/29 completed Not Available Not Available Not Available bupropion HCl XL 150 mg 24 hr tablet, extended release TAKE 1 TABLET BY MOUTH EVERY MORNING FOR 7 DAYS THEN STOP THIS MEDICATIO N 09/29 completed Not Available Not Available Not Available nitrofurant oin monohydrate /macrocryst als 100 mg capsule 01/29 completed Not Available Not Available Not Available Pepcid 01/29 completed Not Available Not Available Not Available Zyrtec active Not Available Not Availa ble Not Available Lulu 0.35 mg tablet TAKE 1 TABLET DAILY 2024 active Not Available Not Available Not Avai lable Vitals Date Recorded Body height Systolic And Diastolic Provider Name and Address Organization Details Last Updated DateTime 02/19/2022 162.56 cm 120/92 mm[Hg] Shani Weems [place] - [facility] 02/19/2022 17:39:10 Date Recorded Body height Systolic And Diastolic Provider Name and Address Organization Details Last Updated DateTime 02/24/2022 162.56 cm 142/90 mm[Hg] Shani Cottongali [facility] 02/24/2022 15:47:43 Date Recorded Body height Body mass index (BMI) Body weight Systolic And Diastolic Provider Name and Address Organization Details Last Updated DateTime 05/17/2024 162.56 cm 41.2 kg/m2 104223.17 g 126/86 mm[Hg] DAFNE Farias [facility] 05/17/2024 16:55:01 Date Recorded Body height Body mass index (BMI) Body weight Systolic And Diastolic Provider Name and Address Organization Details Last Updated DateTime 09/29/2022 162.56 cm 42.1 kg/m2 009401.13 g 131/81 mm[Hg] Laurie Arturo [facility] 09/29/2022 14:14:26 Social History Question Answer Notes LastModified by Organizat ion Details LastModified Time Tobacco Smoking Status Never [facility] 10/11/2019 13:49:38 Do You Have An Advance Directive? No [email or web address] Information n ot available 05/17/2024 If You Are , What Was Your Level Of Alcohol Consumption Prior To ? None [email or web address] Information not available 05/17/2024 Are You Blind Or Do You Have Difficulty Seeing? No [email or web address] Information n ot available 05/17/2024 What Is Your Level Of Caffeine Consumption? None [email or web address] Information not available 05/17/2024 In The 14 Days Before Symptom Onset, Have You Had Close Contact With A Laboratory-confirm ed COVID-19 While That Case Was Ill? No [email or web address] Information n ot available 05/17/2024 In The 14 Days Before Symptom Onset, Have You Had Close Contact With A Person Who Is Under Investigation For COVID-19 While That Person Was Ill? No [email or web address] Information not available 05/17/2024 Have You Been To An Area Known To Be High Risk For COVID-19? No [email or web address] Information not available 05/17/2024 Are You Deaf Or Do You Have Serious Difficulty Hearing? No [email or web address] Information not available 05/17/2024 What Type Of Diet Are You Following? REGULAR [email or web address] Information n ot available 05/17/2024 What Is The Highest Grade Or Level Of School You Have Completed Or The Highest Degree You Have Received? [id number] [email or web address] Information not available 05/17/2024 Are There Any Guns Present In Your Home? No [email or web address] Information not available 05/17/2024 Do You Use Your Seat Belt Or Car Seat Routinely? Yes [email or web address] Information not available 05/17/2024 Are You Sexually Active? Yes [email or web address] Information not available 05/17/2024 Do You Have Smoke And Carbon Monoxide Detectors In Your Home? Yes [email or web address] Information not available 05/17/2024 Do You Use Sunscreen Routinely? Yes [email or web address] Information not available 05/17/2024 Has Tobacco Cessation Counseling Been Provided? No [email or web address] Information not available 05/17/2024 Do You Have Difficulty Walking Or Climbing Stairs? No [email or web address] Information not available 05/17/2024 Sex: Unknown Functional Status Question Answer Note LastModified by Organizat ion Details LastModified Time Do you or have you ever used any other forms of tobacco or nicotine? No [email or web address] Information not available 05/17/2024 What is your level of alcohol consumption? None Information not available 05/17/2024 Are you currently employed? Yes [email or web address] Information not available 05/17/2024 Are you able to walk independently without assistance or assistive devices? YESWOREST [email or web address] Information not available 05/17/2024 Are you able to care for yourself independently? Yes [email or web address] Information not available 05/17/2024 Do you have difficulty dressing, bathing, grooming, or toileting? No [email or web address] Information not available 05/17/2024 Mental Status Question Answer Note LastModified by Organization D etails LastModified Time Do you feel stressed (tense, restless, nervous, or anxious, or unable to sleep at night)? [id number] [email or web address] Information not available 05/17/2024 Family History Relationship Description Onset Age of this Age Resolved Age Notes LastModified by Organization Details LastModified Time Maternal Grandmother Carcinoma in situ of breast [email or web address] Not available 2024 16:34:42 Father Diabetes mellitus [email or web address] Not available 02/09 15:17:28 Father Diabetes mellitus [email or web address] Not available 02/09 15:17:28 Father Diabetes mellitus [email or web address] Not available 02/09 15:17:28 Maternal Uncle Diabetes mellitus [email or web address] Not available 02/09 15:17:28 Maternal Uncle Diabetes mellitus [email or web address] Not available 02/09 15:17:28 Maternal Uncle Diabetes mellitus [email or web address] Not available 02/09 15:17:28 Mother Malignant neoplasm of stomach [email or web address] Not available 2024 16:56:59 Medical History Condition Response Allergies (Food, seasonal, environmental ) N Other N Drug/Latex Allergies/Reactions N Blood Transfusion N Breast Cancer N Dermatologic Disorders N Lung Disease N Defects or Inherited Disease N Breast Problem N Gestational Diabetes N Hematologic disorders N Anesthesia Complications N History of STI N Deep Vein Thrombosis N Polycystic ovary syndrome N Anxiety Disorder N Autoimmune disease N Arthritis N Polyps N Infertility N Acid Reflux (GERD) N History of abnormal pap N Cancer N Varicosities N Stroke N Neurologic/Epilepsy N Endometriosis N High Cholesterol N Fibromyalgia N Headaches N Kidney Disease N Heart Problems N Thyroid Problems N Kidney or Bladder Problems N GI Problems N Eating Disorder N Anemia N Art (IVF or FET) N Psychiatric Illness N Ovarian Cancer N Diabetes N Pulmonary (TB, Asthma) N Hepatitis/Liver Disease N Eczema N Urinary Tract Infection N Abuse/Domestic Violence N Asthma N Trauma/Violence N Depression/ depression N Heart Disease N Pre-Eclampsia N Hypertension N Osteoporosis N Thrombophilias N Gynecological History Statement/Question Response Date of Last Mammogram 02/09/2019 Date of LMP Sexually Active? Y STIs/STDs N Age of first menstrual cycle 12 HPV Vaccine N Date of Last Pap Smear 10/11/2019 Sexual Problems? N Current Control Method Tubal Ligat ion Obstetrics History GPAL:G 3 P 0 0 0 0 Past Encounters Encounter ID Performer Location Encounter Start Date Encounter Closed Date Diagnosis/Indication Diagnosis SNOMED-CT Code Diagnosis ICD10 Code Diagnosis IMO Codes Diagnosis Note [id number] JESUS MarkhamNP-BC [place] [address] [address] 10/11/2019 13:33:33 10/11/2019 15:22:47 Gynecologic examination 16094341 Z01.419 Take Calcium with Vitamin D 1200mg daily if not receiving in daily diet. It is strongly advised to have an annual flu shot and up can obtain at most pharmacies . If you have not had a TDap shot in the last 10 years you should obtain one as well. Discussed with patient & provided with informatio n regarding Gardisil vaccine to prevent the 4 strains for HPV that cause cervical cancer if under age 26. Encourage safe sexual practices, to use condoms and limit partners if not already in a monogamous relationsh ip. Do monthly self breast exams. Have mammogram yearly or every other year depending on family history. BRCA testing is now available for patients with strong genetic history of female cancer. If interested contact the office. Engage in daily exercise of low impact aerobic exercise 45-60 minutes 4-5 times weekly. Avoid tobacco and illicit drugs as well as using moderation with alcohol intake less than 1-2 8 oz beverages daily. This lifestyle behavior pattern will lead to less health conditions and longer life span. If BMI greater than 25 weight watchers or dietary consult advised. Patient received above instructio ns, and questions have been answered. If you have any questions please call or respond to this email. Patient was made aware of the patient portal and may obtain a paper copy of today's plan if desired. Menorrhagia [id number] N9 2.0 N94.5 Pelvic exam difficult due to body habitus. We agreed to updated TVUS. [id number] Keri Wolfe , [facility] [address] [address] 11/02/2019 10:26:40 11/02/2019 11:56:53 Menorrhagia 643251441 N92.0 N94.5 We reviewed TVUS which is wnl. We discussed various options IUD/Endo ablation/P rogesteron e only options as she is a smoker. Hx of tubal ligation. She voices that she would like to consider her options & will let us know which direction she would like to pursue. Her PCP has done full lab work up so she is not at risk for anemia at this time. Time spent in visit is a total of 15 mins with at least 50% of visit consisting of counseling and review of plan of care. [id number] Bud Kaye MD [place] [address] [address] 11/02/2019 10:27:01 11/02/2019 11:32:38 Menorrhagia 937999775 N92.0 [id number] RONIT Kellogg [place] [address] [address] 01/29/2022 16:15:03 01/29/2022 17:56:36 Gynecologic examination [id number] Z01.419 Suggested Calcium with Vitamin D 1200-1500m g daily. Patient advised to get an annual flu shot in the fall and she could obtain at [facility] or [facility]. Also to obtain TDap vaccinatio n if you have not had one in the last 10 years. Recommend yearly mammograms . Encouraged monthly self breast exams. Encourage safe sexual practices, to use condoms and limit partners if not already in a monogamous relationsh ip. Engage in daily exercise of low impact aerobic exercise 45-60 minutes 4-5 times weekly. Avoid tobacco and illicit drugs as well as using moderation with alcohol intake less than 1-2 8 oz beverages daily. This lifestyle behavior pattern will lead to less health conditions and longer life span. If BMI greater than 25 weight watchers or dietary consult advised. All questions have been answered. Patient appears to understand informatio n, but if you have any questions please call or respond to this email. WWEB - BTL in 2006Period s are heavy/pain ful, lasting 7 days. 3-4 days she is changing her pads every 1-2 hours.We agreed to update TVUS and labs for further evaluation Discussed options to help, not interested in IUD/POP/DM PA or surgical options at this timeNo hx of abnormal papsPap done todaySTI testing declinedMa mmogram order givenUTD with PCPRTC for pelvic u/s and f/u Time spent in visit is a total of 30 mins with at least 50% of visit consisting of counseling and review of plan of care. Abnormal u terine bleeding [id number] 9100 N93.9 Blood pres sure above reference range 14483160 R03.0 BP 142/69, no symptoms. Encouraged her to recheck BP at home, f/u with PCP for BP check/aide mane. ED precaution s discussed [id number] Bud Kaye MD [place] [address] [address] 02/04/2022 16:53:05 02/05/2022 10:20:23 Abnormal uterine bleeding [id number] 9100 N93.9 [id number] Beba Garnett JOSELITO [place] [address] [address] 02/19/2022 16:41:09 02/20/2022 16:50:37 Abnormal uterine bleeding [id number] 9100 N93.9 Today we reviewed TVUS result - fibroid uterusDisc ussed fibroids in-depth and relation to heavy/pain ful periodsRec ommend EMB to check for any precancero us/cancero us changesR/B of EMB discussedD iscussed options moving forward to help with painful/he marli periodsPro gestin only methods of BC-IUD, DMPA, Ilya GROSSMAN consult for possible surgical interventi onShe will consider her optionsEMB scheduledS TI urine testing sentRTC for EMB Bp today elevated. No symptoms. Encouraged her to keep BP log at home and schedule BP check with PCP. ED precaution s discussed. Time spent in visit is a total of 30 mins with at least 50% of visit consisting of counseling and review of plan of care. Contracept ion care management 048188361 Z30.9 Venereal d isease screening 442217622 Z11.3 [id number] Beba Garnett JOSELITO [place] [address] [address] 02/24/2022 14:52:12 02/24/2022 16:29:38 Abnormal uterine bleeding [id number] 9100 N93.9 UPT (-)EMB performed without any immediate complicati onsShe is zahra todd her options for management of heavy/pain ful periods (progestin only methods vs surgical interventi ons)RTC for EMB f/uED precaution s discussed BP elevated today. No symptoms. She has BP check with her PCP scheduled. ED precaution s discussed [id number] RONIT Kellogg [place] [address] [address] 09/29/2022 14:05:23 09/29/2022 14:28:15 Contraception care management [id number] Z30.9 Patient is here today for a medicaton check of control. She voices goals of therapy have been met with use of this therapy. She denies neg side effects. She is eating, drinking, sleeping well; moods are stable & periods are well regulated. Wishes to continue this method of BC. Appropriat e to continue this medication . periods are SO much better since starting POPwould like to continuere fills sent x 12 monthsRTC for WWE when due Menorrhagia [id number] N9 2.0 [id number] RONIT Kellogg [place] [address] [address] 05/17/2024 16:34:21 05/18/2024 13:37:28 Gynecologic examination [id number] Z01.419 Z11.51 WWEBC - POP, refills sent x 12 months, r/b/a reviewedPa p - done todaySTI screen - declinedMa mmogram - order givenColon cancer screening - n/aRoutine labs - PCPRTC in 1 yr or sooner if needed Suggested Calcium with Vitamin D daily. Patient advised to get an annual flu shot in the fall and she could obtain at local pharmacy. Also to obtain TDap vaccinatio n if you have not had one in the last 10 years. Recommend yearly mammograms . Encouraged monthly self breast exams. Encourage safe sexual practices, to use condoms and limit partners if not already in a monogamous relationsh ip. Engage in regular exercise. Avoid tobacco and illicit drugs. This lifestyle behavior pattern will lead to less health conditions and longer life span. If BMI greater than 25 dietary consult advised. All questions have been answered. Screening for malignant neoplasm of breast 051862231 Z12.39 Contracept ion care management 108261311 Z30.9 Health Concerns Section Related Observation LastModified by Organization Detai ls LastModified Time None Recorded Concern Status LastModified by Organization Details LastModified Time None Recorded Advance Directives Directive N: Payers Insurance Date Sequence Insurance Name Policy Number Policy Zhang Covered Member ID Zhang Member ID Guarantor Name 05/16/2024 1 [place] [facility] Awa Yan [id number] Awa Yan 05/16/2024 2 [facility] (MEDICAID HMO) [id number] Awa Yan [id number] Awa Yan 05/16/2024 1 [facility] - [facility] BENEFIT [facility]AN [facility] [id number] Awa Yan [id number] Awa Yan Notes Date Note Type Note Provider Name and Address Organization Details Recorded Time 3 text/html 41yo presents for pelvic u/s f/uBTL for BCPeriods are heavy, lasting about 7 days. Changing pads every 30min-1 hour for the first 2-3 days of her periods at times. Heavy cramping with her periodsNo vaginal symptoms today RONIT Kellogg [address], [place], [address], [facility] 02/19/2022 18:11:27 3 text/html 41yo Presents for EMB due to AUBBTL for BCUPT (-) RONIT Kellogg [address], [place], [address], [facility] 02/24/2022 16:23:27 3 text/html 42yopresents for med checkstarted POP 03/03 for management of heavy/painful periodsPeriods are SO much betterlight spotting a few days per monthpain has resolvedvery happy, would like to continue RONIT Kellogg [address], [place], [address], [facility] 09/29/2022 14:22:14 5 text/html Annual GYNReported by PatientGenitourinary symptomsFor menstrual cycle, patient reportsnormal menses. For urinary symptoms, patient reportsno hematuriaandno incontinence. For vulva, patient reportsno genital lesion. For vagina, patient reportsnormal vaginal discharge.Breast symptomsFor breast, patient reportsno breast pain,no breast lump, andno nipple discharge.ContraceptionFo r current contraception, patient reportssatisfied with current contraceptionandoral contraceptives.Endocrine symptomsFor sexual complaints, patient reportsno sexual complaints,no pain during intercourse, andnormal libido. For menopausal symptoms, patient reportsno menopausal symptomsandnormal vaginal lubrication.Psychological symptomsFor psychological symptoms, patient reportsno depression,no anxiety, andno pmdd.Preventative measuresFor preventive measures, patient reportsencourage self breast examination,encourage regular exercise,encourage no tobacco use, andencourage regular mammograms starting age 40.44yo wweBC - BTL and POP, doing well, periods much lighterlast pap 2021 : nilm, HPV (-) RONIT Kellogg [address], [place], [address], [facility] 05/18/2024 10:36:32 OBGyn Episode Ob Episode Information Episode Created Date Number of Fetuses Patient Bloodtype Patient rh Status Prepregnancy Weight lbs Domestic Partner Domestic Partner Phone Father Name Project Manager Retail Status 10/11/19 20 1 CLOSED Fetus Data First Name Last Name Admitted to NICU Weight (g) Sex Living Outcome Pediatric Complications Fetus ID Race Codes Race Delivery Type [id number] Vaginal Delivery Ranulfo Calculation Initial Ranulfo Date Initial Exam Date Initial Exam Provider Initial Ultrasound Date Last Menstrual Period Date Ultra Sound Weeks Gestation 0 Eighteen To Twenty Week Ranulfo Update Ultra Sound Date Fundal Height At Umbil Quickening Date Ultra Sound Latest Weeks Gestation Final Ranulfo Confirmed By Final Ranulfo Confirmed Date Final Ranulfo Date Ultra Sound Latest Days Gestation 0 0 Menstrual History Last Menstrual Date Menses Monthly On Bcp Conception Prior Menses Frequency Hcg Plus Date Menarche Onset Age Delivery Information Delivery Date Delivery Type Labor Anesthesia Weeks Gestation Incision Type Labor Labor Length Hrs Delivered By Post Complications Tubal Sterilization Discharge Date Comments 9 Discharge Information Feeding Method Contraceptive Method Maternal HG B and HCT Levels Ob Episode Information Episode Created Date Number of Fetuses Patient Bloodtype Patient rh Status Prepregnancy Weight lbs Domestic Partner Domestic Partner Phone Father Name Project Manager Retail Status 10/11/19 20 1 CLOSED Fetus Data First Name Last Name Admitted to NICU Weight (g) Sex Living Outcome Pediatric Complications Fetus ID Race Codes Race Delivery Type 4210 Vaginal Delivery Ranulfo Calculation Initial Ranulfo Date Initial Exam Date Initial Exam Provider Initial Ultrasound Date Last Menstrual Period Date Ultra Sound Weeks Gestation 0 Eighteen To Twenty Week Ranulfo Update Ultra Sound Date Fundal Height At Umbil Quickening Date Ultra Sound Latest Weeks Gestation Final Ranulfo Confirmed By Final Ranulfo Confirmed Date Final Ranulfo Date Ultra Sound Latest Days Gestation 0 0 Menstrual History Last Menstrual Date Menses Monthly On Bcp Conception Prior Menses Frequency Hcg Plus Date Menarche Onset Age Delivery Information Delivery Date Delivery Type Labor Anesthesia Weeks Gestation Incision Type Labor Labor Length Hrs Delivered By Post Complications Tubal Sterilization Discharge Date Comments 7 Discharge Information Feeding Method Contraceptive Method Maternal HG B and HCT Levels Ob Episode Information Episode Created Date Number of Fetuses Patient Bloodtype Patient rh Status Prepregnancy Weight lbs Domestic Partner Domestic Partner Phone Father Name Project Manager Retail Status 10/11/19 20 1 CLOSED Fetus Data First Name Last Name Admitted to NICU Weight (g) Sex Living Outcome Pediatric Complications Fetus ID Race Codes Race Delivery Type [id number] Vaginal Delivery Ranulfo Calculation Initial Ranulfo Date Initial Exam Date Initial Exam Provider Initial Ultrasound Date Last Menstrual Period Date Ultra Sound Weeks Gestation 0 Eighteen To Twenty Week Ranulfo Update Ultra Sound Date Fundal Height At Umbil Quickening Date Ultra Sound Latest Weeks Gestation Final Ranulfo Confirmed By Final Ranulfo Confirmed Date Final Ranulfo Date Ultra Sound Latest Days Gestation 0 0 Menstrual History Last Menstrual Date Menses Monthly On Bcp Conception Prior Menses Frequency Hcg Plus Date Menarche Onset Age Delivery Information Delivery Date Delivery Type Labor Anesthesia Weeks Gestation Incision Type Labor Labor Length Hrs Delivered By Post Complications Tubal Sterilization Discharge Date Comments 2 Discharge Information Feeding Method Contraceptive Method Maternal HG B and HCT Levels
--- OUTSIDE RECORDS SUMMARY | 2024-11-29 19:01 | XMS_ITS | Clinical Summary ---
Author Organization [facility] [employer] [place] Address [address] [place] [id number] Care Team Providers Care Professor Of Biostatistics Name Role Phone Capri Olsen MD Primary Care Provider [phone] Allergies Active Allergy Reactions Criticality Noted Date Comments Cefadroxil Other (See Comments),Unknown High 023 Morphine Hives,Itching,Rash,Swelling,Unknown High 04/16/2022 Penicillins Hives,Rash,Swelling,Unknown High 023 Medications cetirizine 10 mg tablet Take 10 mg by mouth daily. Active albuterol sulfate HFA 90 mcg/actuation aerosol inhaler Take 2 Puffs by inhalation every 6 hours as needed for Shortness of Breath. 8.5 Gram 06/24/19 24 Active ARIPiprazole (ABILIFY) 5 mg tablet 03/31/19 25 Active atomoxetine (STRATTERA) 40 mg capsule 03/31/19 25 Active montelukast (SINGULAIR) 10 mg tablet TAKE 1 TABLET(10 MG) BY MOUTH DAILY 90 Tablet 1 07/21/19 25 Active omeprazole (PriLOSEC) 40 mg Capsule, Delayed Release(E.C.)I ndications:Gas tro-esophageal reflux disease without esophagitis Take 1 Capsule (40 mg) by mouth daily. 30 Capsule 11/24/19 25 Active escitalopram oxalate (LEXAPRO) 20 mg tabletIndicati ons:Anxiety and depression Take 1 Tablet (20 mg) by mouth daily. 90 Tablet 11/24/19 25 Active norethindrone, Contraceptive, (Lulu) 0.35 mg Tablet Take 1 Tablet by mouth daily. 06/10/20 25 Active Cholecalcifero l, Vitamin D3, 50 mcg (2,000 unit) Capsule Take by mouth. Active VITAMIN B COMPLEX ORAL Take by mouth. Active neomycin-polym yxin-hydrocort isone (CORTISPORIN) 3.5-10,000-1 mg/mL-unit/mL- % otic solutionIndica tions:Infectiv e otitis externa of right ear Administer 3 Drops in right ear 4 times daily for 7 days. 10 mL 11/29/19 Active fluticasone propionate (FLONASE) 50 mcg/spray [place], Suspension nasal inhalerIndicat ions:Infective otitis externa of right ear Administer 2 Sprays in each nostril daily. 32 Gram 11/29/19 Active gabapentin (NEURONTIN) 300 mg capsule Take 300 mg by mouth daily. 06/20/19 Discontinued(Ot her) norethindrone, Contraceptive, 0.35 mg Tablet Take 0.35 mg by mouth daily. Discontinued(Ot her) fluticasone propionate (FLONASE) 50 mcg/spray [place], Suspension nasal inhaler Administer 2 Sprays in each nostril 2 times daily. 06/04/19 Discontinued(Re order) carvediloL (COREG) 6.25 mg tablet Take 6.25 mg by mouth 2 times daily with meals. 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 08/20/19 025 Discontinued(Ot her) rosuvastatin (Crestor) 10 mg tabletIndicati ons:hyperlipid emia Take 1 Tablet (10 mg) by mouth every other day. 60 Tablet 05/19/19 025 Discontinued(Ot her) escitalopram oxalate (LEXAPRO) 20 mg tabletIndicati ons:Anxiety and depression Take 1 Tablet (20 mg) by mouth daily. 90 Tablet 09/01/19 025 Discontinued(Re order) omeprazole (PriLOSEC) 40 mg Capsule, Delayed Release(E.C.)I ndications:Gas tro-esophageal reflux disease without esophagitis Take 1 Capsule (40 mg) by mouth daily. 30 Capsule 10/15/19 025 Discontinued(Re order) fluticasone propionate (FLONASE) 50 mcg/spray [place], Suspension nasal inhaler Administer 2 Sprays in each nostril 2 times daily. 32 Gram 11/29/19 25 025 Discontinued Active Problems Problem Noted Date Diagnosed Date Excessive sweating 11/28/2024 Anxiety and depression 06/30/2022 Non-seasonal allergic rhinitis 06/30/2022 Food allergy 06/30/2022 Hyperlipidemia 04/16/2022 Gastro-esophageal reflux disease without esophag itis 04/16/2022 Essential (primary) hypertension 04/16/2022 Arthritis 04/16/2022 Tobacco dependence syndrome 04/16/2022 Resolved Problems Problem Noted Date Diagnosed Date Resolved Date Alcohol consumption heavy 06/30/2022 Encounters Date Type Department Care Team Description 11/28/2024 11:00 AM CDT Office Visit [facility]3] at [facility] [employer] [place] [address] [place] [id number] Stacia Kerns ANP Infective otitis externa of right ear (Primary Dx); Excessive sweating 11/24/2024 1:20 PM CDT Procedure visit [facility]3] at [place] [address] [place] [address] Issue of repeat prescription (Primary Dx) 11/23/2024 Refill [facility] at [facility] [employer] [place] [address] [place] [address] Capri Olsen MD Gastro-esophageal reflux disease without esophagitis; Anxiety and depression 10/25/2024 Refill [facility] at [facility] [employer] [place] [address] [place] [address] Capri Olsen MD 10/14/2024 2:20 PM CDT Procedure visit [facility]3] at [facility] [employer] [place] [address] [place] [address] Issue of repeat prescription (Primary Dx) 10/14/2024 Refill [facility] at [facility] [employer] [place] [address] [place] [address] Capri Olsen MD Gastro-esophageal reflux disease without esophagitis 09/13/2024 External Device Data [facility] ABSTRACTION Provider, Abstract 09/02/2024 1:30 PM CDT Procedure visit [facility]3] at [facility] [employer] [place] [address] [place] [address] Issue of repeat prescription (Primary Dx) 08/31/2024 Refill [facility]3] at [employer] [place] [address] [place] [address] Capri Olsen MD Gastro-esophageal reflux disease without esophagitis; Anxiety and depression from Last 3 Months Immunizations Immunization Administration Dates Next Due (ADACEL/BOOSTRIX)(10 YR UP) TDAP VACCINE, 0.5ML, IM 10/02/2022 Family History Medical History Relation Name Comments Diabetes Father fernanda Breast Cancer Maternal Grandmother grandma erlinda Depression Mother momma Hypertension Mother momma Thyroid Disease Son fe Relation Name Status Comments Father fernanda Maternal Grandmother grandma erlinda Mother momma Son fe Social History Tobacco Use Types Packs/Day Years [...] AM CDT Legal 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 Gender Identity Female 06/25/2023 5:35 AM CDT Sexual Orientation Bisexual 06/25/2023 5: 35 AM CDT Last Filed Vital Signs Vital Sign Reading [...] Mass Index 44.82 11/28/2024 10:47 AM CDT Plan of Treatment Upcoming Encounters Date Type Department Care Team (Late st Contact Info) Description 12/08/2024 8:20 AM CDT Procedure visit [facility]3] at [facility] [place] [address] [place] [phone] 03/02/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 Office Visit [facility]3] at [facility] [place] [address] [place] [phone] Stacia Kerns, ANP [address] [place] [address] Health Maintenance Due Date Last Done Comments HEPATITIS B VACCINES (1 of 3 - 19+ 3-dose series) 09/1999 HPV/Cotest (21-29) 2001 HPV VACCINES (1 - 3-dose SCDM series) 2007 HPV/Cotest (30-65) 2010 BREAST CANCER SCREENING 2020 INFLUENZA VACCINE (#1) 2024 Pre-Diabetes and Diabetes Screening 04/28/202704/27 CERVICAL CANCER SCREENING 05/18/2027 PAP SMEAR 05/18/2027 05/17/2024 DTAP/TDAP/TD VACCINES (2 - Td or Tdap) 10/02/2032 Procedures Procedure Name Priority Date/Time Associated Diagnosis Comments HEMOGLOBIN A1C Routine 04/27/2024 9:22 AM CDT Screening for condition from Last 3 Months or Most Recently Relevant to Health Maintenance Results * HEMOGLOBIN A1C (04/27/2024 9:22 AM CDT) HEMOGLOBIN A1C 5.4 <5.7 % of total Hgb [facility] Comment: For the purpose of screening for the presence of diabetes: <5.7% Consistent with the absence of diabetes 5.7-6.4% Consistent with increased risk for diabetes (prediabetes) > or =6.5% Consistent with diabetes This assay result is consistent with a decreased risk of diabetes. Currently, no consensus exists regarding use of hemoglobin A1c for diagnosis of diabetes in children. According to [place] Diabetes Association (ADA) guidelines, hemoglobin A1c <7.0% represents optimal control in non- diabetic patients. Different metrics may apply to specific patient populations. Standards of Medical Care in Diabetes(ADA). ESTIMATED AVERAGE GLUCOSE (MG/DL) 108 mg/dL [facility] ESTIMATED AVERAGE GLUCOSE (MMOL/L) 6.0 mmol/L [facility] Comment: Test Performed at: [facility] [address] [place] [address] [facility] Blood 04/27/2024 9:22 AM CDT 04/28/2024 1:15 AM CDT us Capri Olsen MD CHEMISTRY ORDERABLES Final Res ult [facility] [phone] [facility] [address] [place] [address] from Last 3 Months or Most Recently Relevant to Health Maintenance Insurance * Guarantor: [employer] Account Type Relation to Patient Date of Phone Billing Address Corporate Employer ATTN: ISAIAH RODRIGUEZ [address] [address] [place] OPEN ACCESS Care Teams Professor Of Biostatistics Relationship Specialty Start Date End Date Capri Olsen MD [address] [place] [phone] PCP - General Internal Medicine 06/24/23
--- OUTSIDE RECORDS SUMMARY | 2024-11-29 19:01 | XMS_ITS | Patient Health Record ---
Author Organization [facility] [employer] Address [address] [facility] [address] [place] [address] Care Team Providers Care Granulating Machine Operator Name Role Phone Rajat Reese Unavailable [phone] Reason For Referral No Information Plan Of Treatment No Information
== END 2024-11-29 15:10 | disposition home or self-care (01) ==
LOC: ANHFOHIMG 15:11
PROVIDERS: PCP Internal Medicine; Visit Provider Internal Medicine
DX: Z12.31 Encounter for screening mammogram for malignant neoplasm of breast (principal)
CPT/HCPCS: 77063; 77067